=== PATIENT | female | born 1985 ===

== ENCOUNTER 2018-06-13 15:02 | Outpatient (CLI) | payer BC | END 2018-06-13 15:03 | disposition home or self-care (01) | LOC: BICMAMMO 15:02 | PROVIDERS: ATTEND Family Medicine | DX: Z12.31 Encounter for screening mammogram for malignant neoplasm of breast (principal); Z80.3 Family history of malignant neoplasm of breast | CPT/HCPCS: 77063; 77067 ==

== ENCOUNTER 2019-02-26 10:28 | Outpatient (CLI) | payer BC ==
--- NOTE | 2019-02-26 11:46 | ULT ---
Exam: Pelvic ultrasound including Transabdominal, And Vascular Duplex with color and spectral Doppler imag ing: HISTORY: Pelvic pain COMPARISON: None FINDINGS: The uterus is 8.2 x 4.1 x 5.4 cm Endometrial thickness:1.2 cm Right ovary:1.9 x 2.7 x 1.8 cm Left ovary:4.7 x 4.0 x 4.5 cm containing a cyst measuring 3.1 x 3.4 x 4.0 cm No abscess or significant abnormal fluid collection. Vascular duplex examination demonstrates no evidence for ovarian torsion IMPRESSION: Left ovarian cyst. Minimally thickened endometrium.
== END 2019-02-26 10:29 | disposition home or self-care (01) ==
LOC: SCSULT 10:28
PROVIDERS: ATTEND Family Medicine
DX: R10.2 Pelvic and perineal pain (principal); N83.202 Unspecified ovarian cyst, left side; R93.89 Abnormal findings on diagnostic imaging of other specified body structures
CPT/HCPCS: 76856; 93976